=== PATIENT | male | born 1970 | race Caucasian/White ===

== ENCOUNTER 2024-05-17 18:02 | Observation (INO) ==
--- NOTE | 2024-05-17 18:04 | DR.URIAD ---
HPI Time Seen Time Seen by Provider: 05/17/24 18:04 HPI Comment HPI Comment: 53-year-old male smoker with history of asthmatic bronchitis came in for shortness of breath, fever and not feeling well since yesterday. He recently had hernia repair by Dr. Raygoza last month and had been doing fairly well, no vomiting or diarrhea, eating well but has not returned to work for the past 2 weeks. Grandkids had URI symptoms over the weekend. He also noted leg swelling for the past few days, not taking any medications for hypertension. PMH PMH Past Medical History: Yes Past Medical History: Asthma and Hypertension Past Surgical History: Yes Surgical History: Appendectomy and Cholecystectomy Family History Family Medical History: Sudden Cardiac Social History Does patient currently use any type of tobacco product: Yes Have you used tobacco products in the last 12 months: Yes Type of Tobacco Use: Cigarettes Does any household member use tobacco: Yes Alcohol Use: Occasionally Do you use any recreational Drugs:: Yes (marijuana) Travel Risk Coronavirus risk:travel/contact w/high risk person: No Has patient experienced Coronavirus symptoms: Yes Coronavirus symptoms experienced: Fever, Coughing and Shortness of Breath Infectious screening In the last 2 months have you had wt loss of >10#?: NO Have you had fever, night sweats or hemotysis?: Yes Have you traveled outside the country in the last 6 months?: No ROS Review of Systems Constitutional: Chills, Fever, Malaise, Fatigue and Loss of Appetite Eyes: No Symptoms Reported ENTM: Nose Congestion; negative Ear Pain or Epistaxis Respiratoy: Non-Productive Cough, Dry Cough and Short of Breath; negative Hemoptysis Cardiovascular: Edema; negative Chest Pain or Syncope Gastrointestinal/Abdominal: No Symptoms Reported Genitourinary: No Symptoms Reported Neurological: No Symptoms Reported Musculoskeletal: See HPI and Chest wall Integumentary: No Symptoms Reported Hematologic/Lymphatic: No Symptoms Reported; negative Anemia, Easy Bleeding or Easy Bruising Endocrine: No Symptoms Reported Psychiatric: No Symptoms Reported All Other Systems: Reviewed and Negative PE Vital Signs Vitals: Vital Signs Temperature 97.5 F Pulse Rate 95 Pulse Rate 94 Pulse Rate 96 Pulse Rate 94 Pulse Rate 96 Pulse Rate 95 Respiratory Rate 21 Respiratory Rate 33 Respiratory Rate 29 Respiratory Rate 29 Respiratory Rate 24 Respiratory Rate 22 Blood Pressure 145/82 Blood Pressure 151/90 Blood Pressure 153/94 O2 Sat by Pulse Oximetry 95 O2 Sat by Pulse Oximetry 91 O2 Sat by Pulse Oximetry 92 O2 Sat by Pulse Oximetry 91 O2 Sat by Pulse Oximetry 93 O2 Sat by Pulse Oximetry 98 General Limitations: No Limitations; negative Altered Mental Status or Physical Limitation General Appearance: Alert, Anxious and In Distress (mild distress, "can't breathe") Head Head Exam: Normal Inspection, Atraumatic and Normocephalic Eyes Eye exam: Normal Appearance, PERRL and EOMI; negative Scleral Icterus or Conjunc tival Injection ENT ENT Exam: Normal External Ear Exam, Mucous Membranes Dry and Other (nasal mucosal edema, swollen and pale turbinates) External Ear Exam: Normal External Inspection Neck Neck Exam: Normal Inspection and Full ROM; negative Tenderness or Meningismus Chest Chest Inspection: Normal Inspection and Symmetric Chest Wall Rise; negative Tenderness Respiratory Respiratory Exam: Accessory Muscle Use; negative Stridor Respiratory Exam: Bilateral: Rhonchi and Bilateral: Decreased Breath Sounds Cardiovascular Cardiovascular Exam: Regular Rate and Systolic Murmur Abdominal Exam Abdominal Exam: Normal Inspection, Normal Bowel Sounds and Soft; negative Distention, Tenderness or Guarding Extremeties Extremities Exam: Full ROM, Normal Capillary Refill and Edema; negative Tenderness or Joint Swelling Back Back Exam: Normal Inspection and Full ROM; negative Tenderness Neurologic Neurological Exam: Alert, Oriented X3, CN II-XII Intact and Normal Gait Psychiatric Psychiatric Exam: Normal Affect, Normal Mood and Depressed Skin Skin Exam: Warm, Dry and Intact MDM Additional Information Additional Information Obtained From: Old Records and Family Differential Diagnosis Differential Diagnosis: Influenza:H1N1, Pneumonia, Sinsusitis and URI (CHF, Cor Pulmonale, Valvular Heart Dz) COURSE Treatment Treatment: Duoneb tx ROR Labs Reviewed 05/17/24 18:42 05/17/24 18:42 Laboratory: WBC 9.0 X10^3/uL (3.6-10.0) 05/17/24 18:42 RBC 2.97 X10^6/uL (4.7-6.0) L 05/17/24 18:42 Hgb 8.4 g/dL (13.5-18.0) L 05/17/24 18:42 Hct 25.4 % (42.0-54.0) L 05/17/24 18:42 MCV 85.6 fL (80.0-100.0) 05/17/24 18:42 MCH 28.1 pg (27.0-34.0) 05/17/24 18:42 MCHC 32.9 g/dL (33.0-35.0) L 05/17/24 18:42 RDW 21.9 % (11.6-16.5) H 05/17/24 18:42 Plt Count 421 X10^3/uL (150.0-450.0) 05/17/24 18:42 Plt Count Comment Adequate (ADEQUATE) 05/17/24 18:42 MPV 7.3 fL (7.4-11.0) L 05/17/24 18:42 Neut % (Auto) 57.1 % (42.0-75.0) 05/17/24 18:42 Lymph % (Auto) 27.6 % (21.0-51.0) 05/17/24 18:42 [facility] % (Auto) 6.0 % (0.0-13.0) 05/17/24 18:42 Eos % (Auto) 7.7 % (0.9-2.9) H 05/17/24 18:42 Baso % (Auto) 1.6 % (0.2-1.0) H 05/17/24 18:42 Neut # (Auto) 5.1 x10^3/uL (2.2-4.8) H 05/17/24 18:42 Lymph # (Auto) 2.5 X10^3/uL (1.3-2.9) 05/17/24 18:42 [facility] # (Auto) 0.5 x10^3/uL (0.3-0.8) 05/17/24 18:42 Eos # (Auto) 0.7 x10^3/uL (0.0-0.2) H 05/17/24 18:42 Baso # (Auto) 0.1 X10^3/uL (0.0-0.1) 05/17/24 18:42 Absolute Nucleated RBC 0.7 /100WBC 05/17/24 18:42 Plt Morphology Comment Normal (NORMAL) 05/17/24 18:42 RBC Morphology Abnormal (NORMAL) 05/17/24 18:42 Anisocytosis 1+ A 05/17/24 18:42 Sodium 138 mmol/L (136-145) 05/17/24 18:42 Corrected Sodium TNP 05/17/24 18:42 Potassium 4.5 mmol/L (3.5-5.1) 05/17/24 18:42 Chloride 105 mmol/L (98-107) 05/17/24 18:42 Carbon Dioxide 22.8 mmol/L (21-32) 05/17/24 18:42 BUN 14 mg/dL (7-18) 05/17/24 18:42 Creatinine 1.19 mg/dL (0.70-1.30) 05/17/24 18:42 Est GFR (MDRD) Af Amer > 60 (>60) 05/17/24 18:42 Est GFR (MDRD) Non-Af > 60 (>60) 05/17/24 18:42 Glucose 92 mg/dL (65-99) 05/17/24 18:42 Calcium 8.9 mg/dL (8.5-10.1) 05/17/24 18:42 Corrected Calcium 9.9 mg/dL (8.5-10.1) 05/17/24 18:42 Total Bilirubin 0.70 mg/dL (0.2-1.0) 05/17/24 18:42 AST 20 Units/L (15-37) 05/17/24 18:42 ALT 19 Units/L (12-78) 05/17/24 18:42 Alkaline Phosphatase 107 Units/L (46-116) 05/17/24 18:42 Creatine Kinase 33 Units/L (39-308) L 05/17/24 18:42 Troponin I High Sens 33.2 ng/L (4.0-60.0) 05/17/24 18:42 B-Natriuretic Peptide 2410 pg/mL (0-79) H 05/17/24 18:42 Total Protein 8.2 g/dL (6.4-8.2) 05/17/24 18:42 Albumin 2.8 g/dL (3.4-5.0) L 05/17/24 18:42 Globulin 5.4 g/dL (2.5-4.5) H 05/17/24 18:42 Albumin/Globulin Ratio 0.5 Ratio (1.1-2.1) L 05/17/24 18:42 SARS-CoV-2 (PCR) Negative (NEGATIVE) 05/17/24 18:15 Influenza Type A (PCR) Negative (NEGATIVE) 05/17/24 18:15 Influenza Type B (PCR) Negative (NEGATIVE) 05/17/24 18:15 RSV (PCR) Negative (NEGATIVE) 05/17/24 18:15 S. pyogenes (TEM-PCR) Not detected (NOT DETECT) 05/17/24 18:15 XRAY XRAY Interpreted by: Self X-ray Results: Cardiomegaly with enlarged cardiac silhouette, interstitial vascular congestion compatible with CHF, no pleural effusion EKG Rate: 95 [place]: Normal Rhythm: NSR Opioid Opioid Risk Tool Age (Quentin box if 16-45): No History of Preadolescent Sexual Abuse: No Total: 0 Total Score Risk Category: Low Risk Copyright: Julián GARIBAY predicting aberrant behaviors Discharge Plan Diagnosis Discharge Problem: Acute dyspnea Congestive heart failure (CHF) Qualifiers: Heart failure type: unspecified Discharge Plan Patient Disposition: ADMITTED INPATIENT Assessment: 1) Dyspnea: sec. to CHF, valvular heart disease, most likely ; given Duoneb, furosemide, NTP, ASA 2) CHF: EKG NSR with LAE, will need Echo Condition: Stable Prescriptions: No Action [facility] Concerns: Post Hospitalization: new medications and changes needed to prevent readmission or further decline. Pt educated and given instructions on all concerns. Plan of Treatment: Continue with present treatment and follow up plan. Pt is to keep follow up appointment as instructed and take medications as ordered. Instructions Instructions: Heart Failure Stand Alone Forms: Find Help Web Site, Post Hospital Follow Up Care ADDITIONAL NOTES Additional Notes Additional Notes: Signed off to Dr. Wahl at 1999 for further dispo
[2024-05-17] MEDS: DUONEB 0.5 MG/3 MG (3 mL) NEB ONE (18:21)
--- NOTE | 2024-05-17 18:30 | EKG ---
Test Reason : SOB Blood Pressure : */* mmHG Vent. Rate : 95 BPM Atrial Rate : 95 BPM P-R Int : 162 ms QRS Dur : 90 ms QT Int : 382 ms P-R-T Axes : 32 71 47 degrees QTc Int : 480 ms Normal sinus rhythm Possible Left atrial enlargement Prolonged QT Abnormal ECG When compared with ECG of 12-APR-2024 10:46, No significant change was found Confirmed by Nathan Fischer MD ([id number]) on 05/18/2024 7:32:53 AM Referred By: Confirmed By: Nathan Fischer MD
[2024-05-17 18:50] LABS: BASOPHILS # (AUTO) 0.1 X10^3/uL (0.0-0.1); BASOPHILS % (AUTO) 1.6 % (0.2-1.0); EOSINOPHILS # (AUTO) 0.7 x10^3/uL (0.0-0.2); EOSINOPHILS % (AUTO) 7.7 % (0.9-2.9); HEMATOCRIT 25.4 % (42.0-54.0); HEMOGLOBIN 8.4 g/dL (13.5-18.0); LYMPHOCYTES # (AUTO) 2.5 X10^3/uL (1.3-2.9); LYMPHOCYTES % (AUTO) 27.6 % (21.0-51.0); MEAN CORPUSCULAR HEMOGLOBIN 28.1 pg (27.0-34.0); MEAN CORPUSCULAR HGB CONC 32.9 g/dL (33.0-35.0); MEAN CORPUSCULAR VOLUME 85.6 fL (80.0-100.0); MEAN PLATELET VOLUME 7.3 fL (7.4-11.0); MONOCYTES # (AUTO) 0.5 x10^3/uL (0.3-0.8); NEUTROPHILS # (AUTO) 5.1 x10^3/uL (2.2-4.8); NEUTROPHILS % (AUTO) 57.1 % (42.0-75.0); PLATELET COUNT 421 X10^3/uL (150.0-450.0); RED BLOOD COUNT 2.97 X10^6/uL (4.7-6.0); RED CELL DISTRIBUTION WIDTH 21.9 % (11.6-16.5)
[2024-05-17 18:56] LABS: STREP A BY PCR NOT DETECTED (NOT DETECT)
[2024-05-17 19:08] LABS: ALANINE AMINOTRANSFERASE 19 Units/L (12-78); ALBUMIN 2.8 g/dL (3.4-5.0); ALKALINE PHOSPHATASE 107 Units/L (46-116); ASPARTATE AMINO TRANSFERASE 20 Units/L (15-37); BLOOD UREA NITROGEN 14 mg/dL (7-18); CALCIUM 8.9 mg/dL (8.5-10.1); CARBON DIOXIDE 22.8 mmol/L (21-32); CHLORIDE 105 mmol/L (98-107); COR CA(FOR HYPOALB) 9.9 mg/dL (8.5-10.1); CREATINE KINASE 33 Units/L (39-308); CREATININE 1.19 mg/dL (0.70-1.30); GLUCOSE 92 mg/dL (65-99); POTASSIUM 4.5 mmol/L (3.5-5.1); SODIUM 138 mmol/L (136-145); TOTAL PROTEIN 8.2 g/dL (6.4-8.2); eGFR NON BLACK RACES > 60 (>60)
[2024-05-17 19:12] LABS: PLATELET MORPHOLOGY COMMENT NORMAL (NORMAL)
[2024-05-17] MEDS: LASIX IVP ONE ×2 (19:12→20:03)
[2024-05-17 19:13] LABS: ANISOCYTOSIS 1+
[2024-05-17] MEDS: NITRO-BID OINT 2% UD (E.R. USE ONLY) TD ONE (20:05)
[2024-05-17] MEDS: TYLENOL 325 MG TAB PO ONE (20:05)
[2024-05-17] MEDS: ASPIRIN 81 MG CHEWTAB PO SCH (20:05)
[2024-05-17] MEDS: ASPIRIN EC 81 MG PO ONE (20:24)
[2024-05-17] MEDS: LASIX PO SCH (21:38)
[2024-05-17] MEDS: ZESTRIL TAB 10 MG PO SCH (21:38)
[2024-05-17] MEDS: COREG TAB 3.125 MG PO SCH (21:38)
[2024-05-17 22:22] VITALS: BMI 23.9
[2024-05-18] MEDS: TYLENOL 325 MG TAB PO PRN (02:19)
[2024-05-18 04:41] LABS: BASOPHILS # (AUTO) 0.1 X10^3/uL (0.0-0.1); EOSINOPHILS # (AUTO) 0.8 x10^3/uL (0.0-0.2); EOSINOPHILS % (AUTO) 8.5 % (0.9-2.9); HEMATOCRIT 29.7 % (42.0-54.0); HEMOGLOBIN 9.6 g/dL (13.5-18.0); LYMPHOCYTES % (AUTO) 22.5 % (21.0-51.0); MEAN CORPUSCULAR HEMOGLOBIN 27.7 pg (27.0-34.0); MEAN CORPUSCULAR HGB CONC 32.4 g/dL (33.0-35.0); MEAN CORPUSCULAR VOLUME 85.2 fL (80.0-100.0); MEAN PLATELET VOLUME 7.6 fL (7.4-11.0); MONOCYTES # (AUTO) 0.6 x10^3/uL (0.3-0.8); MONOCYTES % (AUTO) 6.7 % (0.0-13.0); NEUTROPHILS # (AUTO) 5.5 x10^3/uL (2.2-4.8); NEUTROPHILS % (AUTO) 61.3 % (42.0-75.0); PLATELET COUNT 459 X10^3/uL (150.0-450.0); RED BLOOD COUNT 3.48 X10^6/uL (4.7-6.0); RED CELL DISTRIBUTION WIDTH 21.7 % (11.6-16.5)
[2024-05-18 04:59] LABS: ALANINE AMINOTRANSFERASE 24 Units/L (12-78); ALKALINE PHOSPHATASE 120 Units/L (46-116); ASPARTATE AMINO TRANSFERASE 25 Units/L (15-37); BLOOD UREA NITROGEN 15 mg/dL (7-18); CALCIUM 9.4 mg/dL (8.5-10.1); CARBON DIOXIDE 28.7 mmol/L (21-32); CHLORIDE 102 mmol/L (98-107); COR CA(FOR HYPOALB) 10.2 mg/dL (8.5-10.1); CREATININE 1.43 mg/dL (0.70-1.30); GLUCOSE 99 mg/dL (65-99); POTASSIUM 4.1 mmol/L (3.5-5.1); SODIUM 140 mmol/L (136-145); eGFR NON BLACK RACES 55 (>60)
[2024-05-18 05:05] LABS: ANISOCYTOSIS 1+; PLATELET MORPHOLOGY COMMENT NORMAL (NORMAL)
--- NOTE | 2024-05-18 05:32 | RAD ---
EXAM:CHEST, 1 VIEWHISTORY:not being able to hardly breath states it is not that bad during the day but at night it gets worse along with a fever, productive cough and pain in his rib area from coughing so much.;COMPARISON:04/12/2024FINDINGS:The cardiomediastinal silhouette is widened but stable.Scattered bilateral airspace opacities. No pneumothorax or effusion.No acute osseous abnormality.IMPRESSION:Bilateral opacities concerning for edema or pneumonia. Recommend follow-up to resolution.THIS IS AN ELECTRONICALLY VERIFIED FINAL [id number] 5:29 AM - Electronically signed by Dionte Sharpe MD
[2024-05-18 06:00] LABS: CREATINE KINASE 34 Units/L (39-308)
[2024-05-18] MEDS: DUONEB 0.5 MG/3 MG (3 mL) NEB SCH (09:33)
[2024-05-18] MEDS: PULMICORT NEB TX 0.5 MG NEB SCH (09:33)
[2024-05-18] MEDS: CONSULT PHARMACY - POTASSIUM & MAGNESIUM XX SCH (10:58)
[2024-05-18] MEDS: ZITHROMAX INJ 500 MG VIAL 500 MG in NS 250 ML IV 250 ML IV SCH (13:23)
--- NOTE | 2024-05-18 16:26 | DR.UPDATE ---
H&P Update Prescription drug monitoring program results: PDMP was not reviewed H&P Reviewed: Yes Any changes to H&P?: No Patient was examined?: Yes Vital Signs: Temp Pulse Pulse Resp BP BP BP 05/18/24 12:00 97.3 F L 81 16 139/68 05/18/24 09:34 87 05/18/24 09:33 05/18/24 07:00 05/18/24 07:47 97.2 F L 87 20 129/81 05/18/24 04:00 97.6 F 90 20 140/90 05/18/24 03:19 20 05/18/24 02:19 20 05/18/24 00:10 05/18/24 00:00 98.2 F 88 17 141/72 05/17/24 22:15 05/17/24 21:00 155/90 05/17/24 21:00 94 H 26 H 05/17/24 20:53 140/82 05/17/24 20:52 94 H 28 H 05/17/24 20:51 155/118 05/17/24 20:48 92 H 05/17/24 20:46 91 H 05/17/24 20:33 92 H 29 H 05/17/24 20:31 170/82 05/17/24 21:00 24 155/90 05/17/24 20:31 170/82 05/17/24 20:31 170/82 05/17/24 20:30 92 H 31 H 05/17/24 20:15 93 H 35 H 05/17/24 20:00 93 H 32 H 05/17/24 20:00 159/101 05/17/24 19:45 100 H 05/17/24 19:31 97 H 05/17/24 19:30 162/102 05/17/24 19:23 93 H 28 H 05/17/24 19:21 145/82 05/17/24 20:05 26 H 05/17/24 19:21 95 H 21 05/17/24 19:21 145/82 05/17/24 19:15 94 H 33 H 05/17/24 19:00 96 H 29 H 05/17/24 18:50 94 H 29 H 05/17/24 18:46 96 H 24 151/90 05/17/24 18:10 97.5 F L 95 H 22 153/94 Pulse Ox O2 Del Method O2 Flow Rate FiO2 05/18/24 12:00 95 Nasal Cannula 2 05/18/24 09:34 94 L 05/18/24 09:33 Nasal Cannula 2 28 05/18/24 07:00 Room Air 21 05/18/24 07:47 93 L Nasal Cannula 2 05/18/24 04:00 94 L Nasal Cannula 2 05/18/24 03:19 05/18/24 02:19 05/18/24 00:10 Nasal Cannula 2 28 05/18/24 00:00 94 L Nasal Cannula 2 05/17/24 22:15 Room Air 21 05/17/24 21:00 05/17/24 21:00 98 05/17/24 20:53 05/17/24 20:52 93 L 05/17/24 20:51 05/17/24 20:48 94 L 05/17/24 20:46 95 05/17/24 20:33 97 05/17/24 20:31 05/17/24 21:00 99 Room Air 05/17/24 20:31 05/17/24 20:31 05/17/24 20:30 96 05/17/24 20:15 93 L 05/17/24 20:00 97 05/17/24 20:00 05/17/24 19:45 95 05/17/24 19:31 95 05/17/24 19:30 05/17/24 19:23 96 05/17/24 19:21 05/17/24 20:05 05/17/24 19:21 95 05/17/24 19:21 05/17/24 19:15 91 L 05/17/24 19:00 92 L 05/17/24 18:50 91 L 05/17/24 18:46 93 L Room Air 05/17/24 18:10 98 Room Air Procedures (ALL) - Central Line Placement PCM.CLCO: written consent Time out performed: Yes Patient placed pm monitor/pulse ox: Yes MD prep: mask, gown, gloves, other Centrial line prep: chlorhexidine scrub, sterile drapes applied Local anesthsia used: lidocane 1% Ultrasound used for placement: Yes (right ij ID'D VIA U/S AND CANNULATION VISUALIZED) Central line lumen ininserted: triple Post procedure: sutured in place, good blood return, all ports aspirated, flushed,capped, sterile dressing applied Post procedure xray: tip oc catheter in good position (appears svc. radiology report pending), no pneumothorax seen Patient tolerated procedure: Yes Complications: none
--- NOTE | 2024-05-18 17:03 | DR.H&P ---
H&P History & Physical for Day of: H&P Date: 05/17/24 Chief Complaint Chief Complaint: CCC, SOB History of Present Illness History of Present Illness: PT IS 53 WM, ER ADMISSION AFTER PRESENTING WITH CO PETR, SOB. PT REPORTS HE HAS ASTHMATIC BRONCHITIS AND WAS EXPOSED TO SICK FAMILY MEMBERS THIS PAST WEEK. PT HAD CHF FINDINGS ON CHEST XRAY WITH NO KNOWN CAD. PT DID REPORT HE WAS TOLD HE HAD A "MURMUR" IN THE PAST. PT DENIES ANY RECENT FEVER OR GI SYMPTOMS. PT DENIES ANY DM OR HTN. PT ADMITTED FOR TREATMENT AND EVALUATION OF ACUTE CHF, NEW ONSET, PNEUMONIA. Past Medical History Past Medical History: Asthma and Hypertension Past Surgical History Surgical History: Abdominal Surgery (LEFT INGUINAL HERNIA REPAIR), Appendectomy and Cholecystectomy Family History Family Medical History: Sudden Cardiac Social History Does patient currently use any type of tobacco product: Yes Have you used tobacco products in the last 12 months: Yes Type of Tobacco Use: Cigarettes How many years tobacco product used: 20 Does any household member use tobacco: No Alcohol Use: None Drug Use: Methamphetamine Medications Home Medications: Home Medications Medication Instructions Recorded Confirmed Type NK 08/04/13 05/17/24 History Allergies Allergies Allergy/AdvReac Type Severity Reaction Status Date / Time No Known Drug Allergies Allergy Verified 05/17/24 18:10 Labs 05/18/24 04:28 05/18/24 04:28 Labs: Laboratory WBC 9.0 X10^3/uL (3.6-10.0) 05/18/24 04:28 RBC 3.48 X10^6/uL (4.7-6.0) L 05/18/24 04:28 Hgb 9.6 g/dL (13.5-18.0) L 05/18/24 04:28 Hct 29.7 % (42.0-54.0) L 05/18/24 04:28 MCV 85.2 fL (80.0-100.0) 05/18/24 04:28 MCH 27.7 pg (27.0-34.0) 05/18/24 04:28 MCHC 32.4 g/dL (33.0-35.0) L 05/18/24 04:28 RDW 21.7 % (11.6-16.5) H 05/18/24 04:28 Plt Count 459 X10^3/uL (150.0-450.0) H 05/18/24 04:28 Plt Count Comment Increased (ADEQUATE) 05/18/24 04:28 MPV 7.6 fL (7.4-11.0) 05/18/24 04: Neut % (Auto) 61.3 % (42.0-75.0) 05/18/24 04: Lymph % (Auto) 22.5 % (21.0-51.0) 05/18/24 04:28 [place] % (Auto) 6.7 % (0.0-13.0) 05/18/24 04:28 Eos % (Auto) 8.5 % (0.9-2.9) H 05/18/24 04: Baso % (Auto) 1.0 % (0.2-1.0) 05/18/24 04: Neut # (Auto) 5.5 x10^3/uL (2.2-4.8) H 05/18/24 04:28 Lymph # (Auto) 2.0 X10^3/uL (1.3-2.9) 05/18/24 04:28 [place] # (Auto) 0.6 x10^3/uL (0.3-0.8) 05/18/24 04:28 Eos # (Auto) 0.8 x10^3/uL (0.0-0.2) H 05/18/24 04:28 Baso # (Auto) 0.1 X10^3/uL (0.0-0.1) 05/18/24 04: Absolute Nucleated RBC 0.4 /100WBC 05/18/24 04:28 Plt Morphology Comment Normal (NORMAL) 05/18/24 04:28 RBC Morphology Abnormal (NORMAL) 05/18/24 04:28 Anisocytosis 1+ A 05/18/24 04:28 Sodium 140 mmol/L (136-145) 05/18/24 04:28 Corrected Sodium TNP 05/18/24 04:28 Potassium 4.1 mmol/L (3.5-5.1) 05/18/24 04:28 Chloride 102 mmol/L (98-107) 05/18/24 04:28 Carbon Dioxide 28.7 mmol/L (21-32) 05/18/24 04:28 BUN 15 mg/dL (7-18) 05/18/24 04:28 Creatinine 1.43 mg/dL (0.70-1.30) H 05/18/24 04:28 Est GFR (MDRD) Af Amer > 60 (>60) 05/18/24 04:28 Est GFR (MDRD) Non-Af 55 (>60) L 05/18/24 04:28 Glucose 99 mg/dL (65-99) 05/18/24 04:28 Calcium 9.4 mg/dL (8.5-10.1) 05/18/24 04:28 Corrected Calcium 10.2 mg/dL (8.5-10.1) H 05/18/24 04:28 Total Bilirubin 0.90 mg/dL (0.2-1.0) 05/18/24 04:28 AST 25 Units/L (15-37) 05/18/24 04:28 ALT 24 Units/L (12-78) 05/18/24 04:28 Alkaline Phosphatase 120 Units/L (46-116) H 05/18/24 04:28 Creatine Kinase 34 Units/L (39-308) L 05/18/24 04:28 Troponin I High Sens 33.2 ng/L (4.0-60.0) 05/17/24 18:42 B-Natriuretic Peptide 1640 pg/mL (0-79) H 05/18/24 04:28 Total Protein 9.0 g/dL (6.4-8.2) H 05/18/24 04:28 Albumin 3.0 g/dL (3.4-5.0) L 05/18/24 04:28 Globulin 6.0 g/dL (2.5-4.5) H 05/18/24 04:28 Albumin/Globulin Ratio 0.5 Ratio (1.1-2.1) L 05/18/24 04:28 Urine Opiates Screen Negative (NEG=<300) 05/17/24 19:19 Urine Methadone Screen Negative (NEG=<300) 05/17/24 19:19 Ur Barbiturates Screen Negative (NEG=<200) 05/17/24 19:19 Ur Phencyclidine Scrn Negative (NEG=<25) 05/17/24 19:19 Ur Amphetamines Screen Positive (NEG=<1000) 05/17/24 19:19 U Benzodiazepines Scrn Negative (NEG=<200) 05/17/24 19:19 Urine Cocaine Screen Negative (NEG=<300) 05/17/24 19:19 U Marijuana (THC) Screen Negative (NEG=<50) 05/17/24 19:19 SARS-CoV-2 (PCR) Negative (NEGATIVE) 05/17/24 18:15 Influenza Type A (PCR) Negative (NEGATIVE) 05/17/24 18:15 Influenza Type B (PCR) Negative (NEGATIVE) 05/17/24 18:15 RSV (PCR) Negative (NEGATIVE) 05/17/24 18:15 S. pyogenes (TEM-PCR) Not detected (NOT DETECT) 05/17/24 18:15 Review of Systems Constitutional: No Symptoms Reported Eyes: No Symptoms Reported ENT: Nose Congestion Respiratory: Cough, Shortness of Breath and Wheezing Cardiovascular: Paroxysmal Noc. Dyspnea and Light Headedness Gastrointestinal: No Symptoms Reported Genitourinary: No Symptoms Reported Musculoskeletal: No Symptoms Reported Skin: No Symptoms Reported Neurological: Weakness (GENERALIZED, FATIGUE) Physical Exam Vital Signs: Vital Signs Temperature 97.3 F Pulse Rate [Left Brachial] 81 Pulse Rate 87 Respiratory Rate 16 Blood Pressure [Left Arm] 139/68 O2 Sat by Pulse Oximetry 95 O2 Sat by Pulse Oximetry 94 Oriented: Normal Eyes: Normal Ear: Normal Nose: Discharge Throat: Dry Respiratory: RLL Diminished and LLL Diminished Cardiovascular: Murmur : Normal Auscultation: Bowel Sounds: Normal Palpation: Normal Tenderness: Normal Skin: Decreased Turgur Musculoskeletal: negative Motor Deficit Psychiatric: Normal Mood Description: Calm Affect: Normal Speech Pattern: Clear and Appropriate Assessment/Plan (1) Congestive heart failure (CHF): Qualifiers: Heart failure type: unspecified Status: Acute Plan: ADMIT, SERIAL CE AND EKG CXR ON ADMISSION IV LASIX WITH STRICT I&OS, SUPPLEMENTAL O2 BP CONTROL, TELEMETRY ECHO, START ON COREG AND LISINOPRIL (2) Acute dyspnea: Status: Acute (3) Acute asthmatic bronchitis: Status: Acute
--- NOTE | 2024-05-18 17:11 | PCM.PROG ---
Progress Note Progress Note for Day of Date of Exam: 05/18/24 Subjective Subjective: PT IS 53 WM, ER ADMISSION WITH SOB AND CCC. PT CXR REVEALED FINDINGS CONSISTENT WITH CHF/EDEMA/ PNEUMONIA. PT HAD ELEVATED BNP. ECHO ORDERED FOR THIS AM AND REPEAT CXR. PT WAS BEEN ON IV LASIX WITH GOOD URINE OUTPT. PT BP THIS AM139/68. PT WAS STARTED ON SUPPLEMENTAL O2, COREG AND LISINOPRIL ON ADMISSION. ON ASSESSEMENT THIS AM PT HAD HARSH MURMUR AND REPORTS HE WAS DX ~2 YEARS AGO. PT REPORTS VERY SOB AND EASILY FATIGUED. PT ADMITS TO A HISOTRY OF IV DRUG USE AND HE HAS BACTEREMIA AROUND 2 YEARS AGO WAS TREATED WITH 6 WEEKS IV THERAPY FROM [facility] IN [place]. PT'S RECORD WAS REQUESTED WITH HIS PERMISSION. PT STATES HE IS A SMOKER BUT DENIES ETOH USE. PT REPORTS HE HAS NO CHEST PAIN THIS AM, BUT COUGHING UP MUCOUS WHICH IS "FOAMY" PT REPORT SOB HAS IMPROVED SINCE ADMISSION AFTER IV LASIX THERAPY. BLOOD CULTURES ORDERED THIS AM, SPUTUM WAS ORDERED ON ADMISSION. PT WAS STARTED ON ZITHROMAX DUE TO BRONCHITIS. Past Medical Family Social History Allergies: Allergies No Known Drug Allergies Allergy (Verified 05/17/24 18:10) Vital Signs and I&O's Vital Signs: Vital Signs Temperature 97.3 F Pulse Rate [Left Brachial] 81 Pulse Rate 87 Respiratory Rate 16 Blood Pressure [Left Arm] 139/68 O2 Sat by Pulse Oximetry 95 O2 Sat by Pulse Oximetry 94 Intake and Output: Intake & Output 05/16/24 05/17/24 05/18/24 05/19/24 11:59 11:59 11:59 11:59 Intake Total 370 / 370 520 / 520 Output Total 3600 / 3600 400 / 400 Balance -3230 / -3230 120 / 120 Physical Exam Oriented: Normal Eyes: Normal Ear: Normal Nose: Discharge Throat: Dry Respiratory: Diminished Cardiovascular: Murmur : Normal Auscultation: Bowel Sounds: Normal Tenderness: Normal Skin: Decreased Turgur Musculoskeletal: negative Motor Deficit Psychiatric: Normal Mood Description: Calm Affect: Normal Speech Pattern: Clear and Appropriate Laboratory and Diagnostics 05/18/24 04:28 05/18/24 04:28 Labs: Laboratory WBC 9.0 X10^3/uL (3.6-10.0) 05/18/24 04:28 RBC 3.48 X10^6/uL (4.7-6.0) L 05/18/24 04:28 Hgb 9.6 g/dL (13.5-18.0) L 05/18/24 04: Hct 29.7 % (42.0-54.0) L 05/18/24 04:28 MCV 85.2 fL (80.0-100.0) 05/18/24 04:28 MCH 27.7 pg (27.0-34.0) 05/18/24 04: MCHC 32.4 g/dL (33.0-35.0) L 05/18/24 04:28 RDW 21.7 % (11.6-16.5) H 05/18/24 04:28 Plt Count 459 X10^3/uL (150.0-450.0) H 05/18/24 04:28 Plt Count Comment Increased (ADEQUATE) 05/18/24 04: MPV 7.6 fL (7.4-11.0) 05/18/24 04:28 Neut % (Auto) 61.3 % (42.0-75.0) 05/18/24 04:28 Lymph % (Auto) 22.5 % (21.0-51.0) 05/18/24 04:28 [place] % (Auto) 6.7 % (0.0-13.0) 05/18/24 04:28 Eos % (Auto) 8.5 % (0.9-2.9) H 05/18/24 04: Baso % (Auto) 1.0 % (0.2-1.0) 05/18/24 04:28 Neut # (Auto) 5.5 x10^3/uL (2.2-4.8) H 05/18/24 04:28 Lymph # (Auto) 2.0 X10^3/uL (1.3-2.9) 05/18/24 04:28 [place] # (Auto) 0.6 x10^3/uL (0.3-0.8) 05/18/24 04:28 Eos # (Auto) 0.8 x10^3/uL (0.0-0.2) H 05/18/24 04:28 Baso # (Auto) 0.1 X10^3/uL (0.0-0.1) 05/18/24 04:28 Absolute Nucleated RBC 0.4 /100WBC 05/18/24 04:28 Plt Morphology Comment Normal (NORMAL) 05/18/24 04:28 RBC Morphology Abnormal (NORMAL) 05/18/24 04:28 Anisocytosis 1+ A 05/18/24 04:28 Sodium 140 mmol/L (136-145) 05/18/24 04:28 Corrected Sodium TNP 05/18/24 04:28 Potassium 4.1 mmol/L (3.5-5.1) 05/18/24 04:28 Chloride 102 mmol/L (98-107) 05/18/24 04:28 Carbon Dioxide 28.7 mmol/L (21-32) 05/18/24 04:28 BUN 15 mg/dL (7-18) 05/18/24 04:28 Creatinine 1.43 mg/dL (0.70-1.30) H 05/18/24 04:28 Est GFR (MDRD) Af Amer > 60 (>60) 05/18/24 04:28 Est GFR (MDRD) Non-Af 55 (>60) L 05/18/24 04:28 Glucose 99 mg/dL (65-99) 05/18/24 04:28 Calcium 9.4 mg/dL (8.5-10.1) 05/18/24 04:28 Corrected Calcium 10.2 mg/dL (8.5-10.1) H 05/18/24 04:28 Total Bilirubin 0.90 mg/dL (0.2-1.0) 05/18/24 04:28 AST 25 Units/L (15-37) 05/18/24 04:28 ALT 24 Units/L (12-78) 05/18/24 04:28 Alkaline Phosphatase 120 Units/L (46-116) H 05/18/24 04:28 Creatine Kinase 34 Units/L (39-308) L 05/18/24 04:28 Troponin I High Sens 33.2 ng/L (4.0-60.0) 05/17/24 18:42 B-Natriuretic Peptide 1640 pg/mL (0-79) H 05/18/24 04:28 Total Protein 9.0 g/dL (6.4-8.2) H 05/18/24 04:28 Albumin 3.0 g/dL (3.4-5.0) L 05/18/24 04:28 Globulin 6.0 g/dL (2.5-4.5) H 05/18/24 04:28 Albumin/Globulin Ratio 0.5 Ratio (1.1-2.1) L 05/18/24 04:28 Urine Opiates Screen Negative (NEG=<300) 05/17/24 19:19 Urine Methadone Screen Negative (NEG=<300) 05/17/24 19:19 Ur Barbiturates Screen Negative (NEG=<200) 05/17/24 19:19 Ur Phencyclidine Scrn Negative (NEG=<25) 05/17/24 19:19 Ur Amphetamines Screen Positive (NEG=<1000) 05/17/24 19:19 U Benzodiazepines Scrn Negative (NEG=<200) 05/17/24 19:19 Urine Cocaine Screen Negative (NEG=<300) 05/17/24 19:19 U Marijuana (THC) Screen Negative (NEG=<50) 05/17/24 19:19 SARS-CoV-2 (PCR) Negative (NEGATIVE) 05/17/24 18:15 Influenza Type A (PCR) Negative (NEGATIVE) 05/17/24 18:15 Influenza Type B (PCR) Negative (NEGATIVE) 05/17/24 18:15 RSV (PCR) Negative (NEGATIVE) 05/17/24 18:15 S. pyogenes (TEM-PCR) Not detected (NOT DETECT) 05/17/24 18:15 Plan (1) Congestive heart failure (CHF): Status: Acute Qualifiers: Heart failure type: unspecified Plan: ECHO OBTAINED THIS AM WITH RESULTS PENDING, CXR PENDING DECREASED LASIX TO 20MG DUE TO INCREASED CREAT THIS AM BP STABLE, PT STARTED ON BB AND RADHA ON ADMISSION BC AND SPUTUM CULTURE ORDERED, IV ATBX AND RESP THERAPY DISCUSSED POSSIBLE TRANSFER PENDING PATIENTS DIAGNOSTIC TEST RESULTS. (2) Acute dyspnea: Status: Acute (3) Acute asthmatic bronchitis: Status: Acute
[2024-05-18 17:24] VITALS: RESP 20
[2024-05-18] MEDS: LASIX IVP SCH (17:28)
[2024-05-18 19:15] VITALS: BP 135/73; TEMP 98.5
[2024-05-18 20:10] VITALS: PULSE 90; O2SAT 97
--- NOTE | 2024-05-19 06:42 | RAD ---
EXAM:Chest PA and lateral viewsHISTORY:CHFCOMPARISON:05/17/2024 r.br.br.[email or web address] cephalization of pulmonary blood flow/congestion with mild interstitial prominence and no evidence for lobar consolidation or pleural effusion.IMPRESSION:Stable cardiomegaly with pulmonary venous congestion consistent with mild/borderline CHF. There is no superimposed pneumonia or leigh pulmonary edema demonstrated.THIS IS AN ELECTRONICALLY VERIFIED FINAL [id number]/2024 6:39 AM - Electronically signed by Aryan Wilkerson MD
--- NOTE | 2024-05-19 07:02 | RAD ---
EXAM:AP chestHISTORY:Line placementCOMPARISON:2:23 p.m. 05/18/2024FINDINGS:A right IJ line is now present extending to the superior cavoatrial junction. No evidence for complicating pleural fluid, pneumothorax or other postprocedural complication. Stable appearance of heart and lungs.IMPRESSION:Interval line placement. See above.THIS IS AN ELECTRONICALLY VERIFIED FINAL MSMYDB2705/19/2024 6:58 AM - Electronically signed by Aryan Wilkerson MD
== END 2024-05-18 21:15 | disposition critical access hospital (66) ==
LOC: MED/SURG 18:02 → ER 18:02 → MED/SURG 21:05
PROVIDERS: ADMIT Internal Medicine; ATTEND Internal Medicine
DX: J20.8 Acute bronchitis due to other specified organisms; B96.3 Hemophilus influenzae [H. influenzae] as the cause of diseases classified elsewhere; R53.1 Weakness; F15.90 Other stimulant use, unspecified, uncomplicated; Z03.818 Encounter for observation for suspected exposure to other biological agents ruled out; R94.31 Abnormal electrocardiogram [ECG] [EKG]; Z72.0 Tobacco use; I50.9 Heart failure, unspecified; R06.02 Shortness of breath; I87.2 Venous insufficiency (chronic) (peripheral); J45.998 Other asthma; Z59.82 Transportation insecurity